=== PATIENT | male | born 1955 | race Caucasian/White ===

== ENCOUNTER 2017-05-23 06:05 | Day surgery (SDC) | payer BC ==
[~2017-05-23 06:05] MED LIST: ACETAMINOPHEN 1,000 MG/100 ML BTL IV ONE; CEFAZOLIN 2 Gram 2 GM/50 ML BAG IVPB ONE; FAMOTIDINE 20MG TABLET PO ONE; MECLIZINE 25 MG TABLET PO ONE; METOCLOPRAMIDE 10 MG TABLET PO ONE
[2017-05-23] MEDS ORDERED: LIDOCAINE 2% MDV (20MG/ML) 20ML VIAL IV ONE (06:06)
[2017-05-23] MEDS ORDERED: ROPIVACAINE HCL (NAROPIN) /PF 5MG/ML 20ML VIAL IV ONE (06:06)
[2017-05-23] MEDS ORDERED: SEVOFLURANE 250 ML INH ONE (06:06)
[2017-05-23] MEDS ORDERED: KETOROLAC 30 MG/ML VIAL IVP ONE (06:06)
[2017-05-23] MEDS ORDERED: DEXAMETHASONE 4 MG/ML 1ML VIAL IVP ONE (06:06)
[2017-05-23] MEDS ORDERED: HYDROCODONE/APAP 7.5/325MG TABLET PO ONE (06:06)
[2017-05-23] MEDS ORDERED: ONDANSETRON HCL IV 4 MG/2 ML VIAL IVP ONE (06:06)
[2017-05-23] MEDS ORDERED: MIDAZOLAM HCL 2MG/2ML VIAL IV ONE (06:06)
[2017-05-23] MEDS ORDERED: FENTANYL PF 100MCG/2ML VIAL IV ONE (06:06)
[2017-05-23] MEDS ORDERED: EPINEPHRINE 1 MG/ML AMPUL SQ ONE (06:06)
[2017-05-23] MEDS ORDERED: PROPOFOL 10 MG/ML VIAL IV ONE (06:06)
[2017-05-23] MEDS ORDERED: EPHEDRINE SULFATE 50 MG/ML ML IV ONE (06:06)
--- NOTE | 2017-05-24 12:20 | Operative Note ---
DATE OF SURGERY: 05/23/2017 Surgeon: Emmanuel Peralta DO PREOPERATIVE DIAGNOSES: 1. Tear of the right rotator cuff. 2. Impingement syndrome, right shoulder. POSTOPERATIVE DIAGNOSES: 1. Tear of the right rotator cuff. 2. Impingement syndrome, right shoulder. 3. Tear of the biceps tendon, right shoulder. OPERATION: 1. Arthroscopic repair of the right rotator cuff. 2. Arthroscopic subacromial decompression and acromioplasty of the right shoulder. 3. Arthroscopic tenotomy of the biceps tendon, right shoulder. DESCRIPTION OF PROCEDURE: This 62-year-old male was taken to the operating room, placed in the supine position on the operating room table. A general anesthetic was administered and the right shoulder was prepped with Hibiclens and draped in the usual sterile fashion after he had been placed in the beach chair position with all bony prominences well padded and head well secured. A posterior portal was established in the right shoulder and the initial evaluation of the glenohumeral joint revealed severe tear of the supraspinatus tendon and portions of the anterior infraspinatus tendon with retraction. The biceps tendon was visualized. No significant articular cartilage loss or damage was apparent. The patient's labrum appeared to be intact. Significant synovitis in the shoulder was also present. Debridement from the undersurface of the rotator cuff was performed. The scope was then placed in the subacromial space and thorough subacromial decompression and acromioplasty was performed. We then cleaned up a significant amount of bursitis overlying the rotator cuff for clear visualization of the tendon which was a "V" type tear which was actually surprisingly mobile. We used an elevator to elevate and free up scarring of the tendon as much as we possibly could. We were then able to repair the cuff in a [id number] fashion. Subsequently, this was a method of repair since I was really unable to bring the cuff back to its anatomic position on the tuberosity. We used four #2 FiberTape sutures in a [id number] fashion. The two closest to the insertion of the tuberosity, the tails were left on the sutures and then traction was placed on the sutures and they were attached to a 4.75 SwiveLock. This was then impaled into the bone over the top of the tuberosity. The tuberosity had been prepared utilizing the rotating shaver and debrided to healthy appearing bone. We got fairly good approximation of the tendon, which I think was a dramatic improvement over its preoperative status and the head was completely covered. The shoulder was then irrigated and suctioned. The instruments were removed. The portals closed with 4-0 nylon suture. Sterile dressings were applied with an UltraSling and the patient was taken to the recovery room in satisfactory condition. GROSS PATHOLOGY: This patient had a severe retracted tear of the supraspinatus tendon, which was repaired in a [id number] fashion. A "V" type tear was discovered. The tendon quality I would say was moderate. The patient had severe tearing of the biceps tendon and it had both horizontal cleavage components as well as marked fraying. The tendon was extremely poor quality, and I did not feel that repair would be satisfactory, and tenotomy was performed. CC: GOVIND CHIRINOS D.O. LEVI
== END 2017-05-23 10:40 | disposition home or self-care (01) ==
LOC: SUR 06:05
PROVIDERS: ATTEND Orthopaedic Surgery
DX: M75.121 Complete rotator cuff tear or rupture of right shoulder, not specified as traumatic (principal); M25.811 Other specified joint disorders, right shoulder; S46.211A Strain of muscle, fascia and tendon of other parts of biceps, right arm, initial encounter; I10 Essential (primary) hypertension; R01.1 Cardiac murmur, unspecified; Z87.891 Personal history of nicotine dependence
CPT/HCPCS: 29827; 29828; 29826; 01630; 64415; J1885; J2405; J3010; J0690; J2795; J0171